=== PATIENT | male | born 1985 | race Caucasian/White ===

== ENCOUNTER 2017-04-07 23:57 | Inpatient (IN) | payer BC ==
[2017-04-08] MEDS: SOD CHLORIDE 0.9% 500 ML IV
[2017-04-08 00:24] LABS: ADD MAN DIFF? NO
[2017-04-08 00:31] LABS: WHITE BLOOD COUNT 9.7 10^3/ul (4.8-10.8)
[2017-04-08 00:31] LABS: ABNORMAL IP MESSAGE 1; BASOPHILS % 0.3 % (0.0-2.0); EOSINOPHILS # 0.1 10^3/ul (0.0-0.5); EOSINOPHILS % 0.8 % (0.0-7.0); HEMATOCRIT 42.9 % (42.0-52.0); HEMOGLOBIN 14.1 g/dl (14.0-18.0); LYMPHOCYTES # 5.2 10^3/ul (0.8-2.9); LYMPHOCYTES % 53.3 % (15.0-51.0); MEAN CORPUSCULAR HEMOGLOBIN 32.1 pg (29.0-33.0); MEAN CORPUSCULAR HGB CONC 32.9 g/dl (32.0-37.0); MEAN CORPUSCULAR VOLUME 97.7 fl (82.0-101.0); MEAN PLATELET VOLUME 10.1 fl (7.4-10.4); MONOCYTE # 0.4 10^3/ul (0.3-0.9); MONOCYTES % 3.7 % (0.0-11.0); NEUTROPHILS % 41.3 % (39.0-77.0); PLATELET COUNT 210 10^3/UL (140-415); POSITIVE DIFF @See below; RED BLOOD COUNT 4.39 10^6/ul (4.70-6.10)
[2017-04-08] MEDS: CEFTRIAXONE 1 GM/50 ML (PMX) 50 ML IVPB (01:00)
[2017-04-08 01:09] LABS: ALANINE AMINOTRANSFERASE 142 IU/L (13-69); ALBUMIN 4.5 g/dl (3.3-4.9); ALBUMIN/GLOBULIN RATIO 1.36; ALKALINE PHOSPHATASE 61 IU/L (42-121); ANION GAP 29 (8-16); ASPARTATE AMINO TRANSFERASE 207 IU/L (15-46); BILIRUBIN,INDIRECT 0.1 mg/dl (0-1.1); BILIRUBIN,TOTAL 0.1 mg/dl (0.2-1.3); BLOOD UREA NITROGEN 15 mg/dl (7-20); CALCIUM 9.3 mg/dl (8.4-10.2); CARBON DIOXIDE 19 mmol/L (21-31); CHLORIDE 101 mmol/L (97-110); CREATININE 1.49 mg/dl (0.61-1.24); GLUCOSE 180 mg/dl (70-220); POTASSIUM 3.2 mmol/L (3.5-5.1); SODIUM 146 mmol/L (135-144); TOTAL PROTEIN 7.8 g/dl (6.1-8.1)
[2017-04-08 01:20] LABS: TROPONIN-I 0.032 ng/ml (0.00-0.12)
[2017-04-08 01:21] LABS: CANNABINOIDS Positive (NEGATIVE)
[2017-04-08 01:22] LABS: AMPHETAMINE/METHAMPHETAMINE Negative (NEGATIVE); BARBITURATES Negative (NEGATIVE); BENZODIAZEPINES Negative (NEGATIVE); COCAINE Positive (NEGATIVE); OPIATES Negative (NEGATIVE)
[2017-04-08 01:24] LABS: INR 1.03; PROTIME 13.6 Sec (11.9-14.9); PT RATIO 1.1
[2017-04-08 01:25] LABS: PARTIAL THROMBOPLASTIN TIME 27.4 Sec (25.0-35.0)
[2017-04-08] MEDS: CLINDAMYCIN 900 MG/D5W (PMX) 50 ML IVPB (01:30)
[2017-04-08] MEDS: PROPOFOL 100 ML IV ×2 (01:35→22:34)
[2017-04-08 01:55] LABS: HEPATITIS B SURFACE ANTIGEN NEGATIVE (NEGATIVE)
[2017-04-08 02:12] LABS: HEPATITIS C VIRAL ANTIBODY NEGATIVE (NEGATIVE); HIV 1&2 ANTIBODY NEGATIVE (NEGATIVE)
[2017-04-08 02:13] LABS: HEPATITIS B SURFACE ANTIBODY POSITIVE (NEGATIVE)
[2017-04-08 02:14] LABS: ADD UMIC YES; UR ASCORBIC ACID NEGATIVE (NEGATIVE); UR BILIRUBIN (Dip) NEGATIVE (NEGATIVE); UR BLOOD (Dip) 1+ mg/dL (NEGATIVE); UR CLARITY CLOUDY (CLEAR); UR COLOR YELLOW (YELLOW); UR GLUCOSE (Dip) 1+ mg/dL (NEGATIVE); UR KETONES (Dip) NEGATIVE (NEGATIVE); UR LEUKOCYTE ESTERASE (Dip) NEGATIVE Leu/ul (NEGATIVE); UR MUCUS FEW /HPF (NONE SEEN); UR NITRITE (Dip) NEGATIVE (NEGATIVE); UR RBC 43 /HPF (0-5); UR SPECIFIC GRAVITY (Dip) 1.008 (1.003-1.030); UR TOTAL PROTEIN (Dip) 3+ mg/dl (NEGATIVE); UR UROBILINOGEN (Dip) NEGATIVE (NEGATIVE); UR WBC 22 /HPF (0-5)
[2017-04-08 02:39] LABS: ACETAMINOPHEN < 10.0 ug/ml (10.0-30.0); SALICYLATE < 1.0 mg/dl (5.0-30.0)
[2017-04-08] MEDS ORDERED: LORAZEPAM 2 MG INJ IV (03:30)
[2017-04-08] MEDS ORDERED: ONDANSETRON 4 MG INJ IV ×2 (03:30→06:00)
[2017-04-08] MEDS ORDERED: ALBUTEROL HFA 8 GM INHALER INH (03:30)
[2017-04-08] MEDS ORDERED: IPRATROPIUM (HFA) 12.9 GM INHALER INH (03:30)
[2017-04-08] MEDS: VECURONIUM 10 MG VIAL IV (03:53)
[2017-04-08] MEDS: DILTIAZEM 25 MG INJ IV (03:53)
[2017-04-08] MEDS: VECURONIUM 100 MG in DEXTROSE 5% 100 ML IV (04:39)
[2017-04-08 05:56] LABS: ADD MAN DIFF? NO
[2017-04-08 05:58] LABS: ABNORMAL IP MESSAGE 1; BASOPHILS % 0.4 % (0.0-2.0); HEMOGLOBIN 16.7 g/dl (14.0-18.0); LYMPHOCYTES # 0.3 10^3/ul (0.8-2.9); LYMPHOCYTES % 4.5 % (15.0-51.0); MEAN CORPUSCULAR HEMOGLOBIN 32.1 pg (29.0-33.0); MEAN CORPUSCULAR HGB CONC 33.4 g/dl (32.0-37.0); MEAN PLATELET VOLUME 9.9 fl (7.4-10.4); MONOCYTE # 0.4 10^3/ul (0.3-0.9); MONOCYTES % 4.7 % (0.0-11.0); NEUTROPHIL # 6.8 10^3/ul (1.6-7.5); NEUTROPHILS % 90.1 % (39.0-77.0); PLATELET COUNT 214 10^3/UL (140-415); POSITIVE DIFF @See below; RED BLOOD COUNT 5.21 10^6/ul (4.70-6.10); RED CELL DISTRIBUTION WIDTH 12.1 % (11.5-14.5)
[2017-04-08 05:58] LABS: WHITE BLOOD COUNT 7.5 10^3/ul (4.8-10.8)
[2017-04-08] MEDS ORDERED: ACETAMINOPHEN 325 MG TAB PO (06:00)
[2017-04-08 06:13] LABS: ALANINE AMINOTRANSFERASE 208 IU/L (13-69); ALBUMIN/GLOBULIN RATIO 1.53; ALKALINE PHOSPHATASE 56 IU/L (42-121); ANION GAP 17 (8-16); ASPARTATE AMINO TRANSFERASE 281 IU/L (15-46); BILIRUBIN,INDIRECT 0.1 mg/dl (0-1.1); BILIRUBIN,TOTAL 0.1 mg/dl (0.2-1.3); BLOOD UREA NITROGEN 17 mg/dl (7-20); CALCIUM 7.9 mg/dl (8.4-10.2); CARBON DIOXIDE 24 mmol/L (21-31); CHLORIDE 111 mmol/L (97-110); CREATININE 1.21 mg/dl (0.61-1.24); GLUCOSE 122 mg/dl (70-220); MAGNESIUM 1.7 mg/dl (1.7-2.5); POTASSIUM 3.8 mmol/L (3.5-5.1); SODIUM 148 mmol/L (135-144); TOTAL PROTEIN 6.6 g/dl (6.1-8.1)
[2017-04-08] MEDS: INSULIN HUMAN REGULAR 100 UNIT in SOD CHLORIDE 0.9% 99 ML IV ×2 (06:54→20:06)
[2017-04-08] MEDS ORDERED: NALOXONE 2 MG SYG (07:00)
[2017-04-08] MEDS ORDERED: AMIODARONE 150 MG INJ (07:00)
[2017-04-08] MEDS ORDERED: NA BICARBONATE 8.4% 50 ML SYG (07:00)
[2017-04-08] MEDS ORDERED: EPINEPHrine 0.1 MG/ML SYG (07:00)
[2017-04-08] MEDS: DEXTROSE 5%-0.45% NACL 1,000 ML IV ×3 (07:59→19:49)
[2017-04-08] MEDS: SOD CHLORIDE 0.9% 1,000 ML IV (08:00)
[2017-04-08] MEDS ORDERED: ACETAMINOPHEN 650 MG SUPP PR (08:30)
[2017-04-08] MEDS ORDERED: MEPERIDINE 25 MG INJ IV ×2 (08:30)
[2017-04-08] MEDS ORDERED: ACETAMINOPHEN 650MG/20.3ML CUP PO (08:30)
[2017-04-08] MEDS ORDERED: DEXTROSE 50% 50 ML SYRINGE IV (08:30)
[2017-04-08 08:39] LABS: AADO2 Arterial 533.9 mmHg (7.0-24.0); Allen Test ACCEPTAB; Arterial Base Excess -12.7 mmol/L (-3.0-3); Arterial Blood Gas Oxygen Sat 97.4 mmHG (95.0-98.0); Arterial COHb 0.3 % (0.0-3.0); Arterial Fraction of Oxyhgb 96.8 % (93.0-99.0); Arterial HCO3 15.3 mmol/L (22.0-26.0); Arterial MetHb 0.3 % (0.0-1.5); Arterial Total Hemglobin 14.4 g/dl (12.0-18.0); Arterial pCO2 42.6 mmhg (35-45); Blood Gas Mean Airway Pressure 12; MODE VENT - AC; Site Right Radial
[2017-04-08] MEDS: FAMOTIDINE 20 MG INJ IV ×2 (08:40→21:38)
[2017-04-08] MEDS: MULTIVITAMINS 10 ML, THIAMINE 100 MG, FOLIC ACID 1 MG in SOD CHLORIDE 0.9% 1,000 ML IVPB (08:41)
[2017-04-08 09:17] LABS: AADO2 Arterial 502.3 mmHg (7.0-24.0); Allen Test ACCEPTAB; Arterial Base Excess -7.7 mmol/L (-3.0-3); Arterial Blood Gas Oxygen Sat 98.3 mmHG (95.0-98.0); Arterial COHb 0.3 % (0.0-3.0); Arterial Fraction of Oxyhgb 97.8 % (93.0-99.0); Arterial HCO3 21.7 mmol/L (22.0-26.0); Arterial MetHb 0.2 % (0.0-1.5); Arterial Total Hemglobin 17.2 g/dl (12.0-18.0); Arterial pCO2 59.3 mmhg (35-45); MODE VENT - AC; Site Right Radial
[2017-04-08] MEDS: CEFEPIME 1GM/50 ML (PMX) 50 ML IVPB ×2 (09:35→21:39)
[2017-04-08 10:09] LABS: CREATINE KINASE 278 IU/L (23-200)
[2017-04-08] MEDS: ACCU-CHEK XX ×16 (10:09→23:34)
[2017-04-08 10:23] LABS: CK INDEX 0.7; TROPONIN-I 0.021 ng/ml (0.00-0.12)
[2017-04-08 10:26] LABS: CK-MB 2.08 ng/ml (0.0-2.4)
[2017-04-08] MEDS: VALSARTAN 80 MG TAB PO (11:30)
[2017-04-08] MEDS: SPIRONOLACTONE 25 MG TAB PO (11:30)
[2017-04-08] MEDS ORDERED: METOPROLOL (XL) 50 MG TAB PO (11:30)
[2017-04-08] MEDS: OCULAR LUBRICANT 3.5 GM OPH OINT BOTH EYES ×3 (12:00→23:36)
[2017-04-08 12:19] LABS: ALANINE AMINOTRANSFERASE 185 IU/L (13-69); ALBUMIN 3.4 g/dl (3.3-4.9); ALBUMIN/GLOBULIN RATIO 1.21; ALKALINE PHOSPHATASE 44 IU/L (42-121); ANION GAP 18 (8-16); ASPARTATE AMINO TRANSFERASE 212 IU/L (15-46); BILIRUBIN,INDIRECT 0.3 mg/dl (0-1.1); BILIRUBIN,TOTAL 0.3 mg/dl (0.2-1.3); BLOOD UREA NITROGEN 16 mg/dl (7-20); CALCIUM 8.1 mg/dl (8.4-10.2); CARBON DIOXIDE 22 mmol/L (21-31); CHLORIDE 110 mmol/L (97-110); GLUCOSE 136 mg/dl (70-220); MAGNESIUM 1.4 mg/dl (1.7-2.5); PHOSPHORUS 3.4 mg/dl (2.5-4.9); POTASSIUM 3.7 mmol/L (3.5-5.1); SODIUM 146 mmol/L (135-144); TOTAL PROTEIN 6.2 g/dl (6.1-8.1)
[2017-04-08] MEDS: ARTIFICIAL TEARS 15 ML OPH BOTH EYES ×3 (12:48→23:35)
[2017-04-08 13:22] LABS: AADO2 Arterial 381.1 mmHg (7.0-24.0); Allen Test ACCEPTAB; Arterial Base Excess -7.1 mmol/L (-3.0-3); Arterial Blood Gas Oxygen Sat 99.3 mmHG (95.0-98.0); Arterial COHb 0.3 % (0.0-3.0); Arterial Fraction of Oxyhgb 98.7 % (93.0-99.0); Arterial HCO3 21.1 mmol/L (22.0-26.0); Arterial MetHb 0.3 % (0.0-1.5); Arterial Total Hemglobin 17.3 g/dl (12.0-18.0); Arterial pCO2 43.6 mmhg (35-45); MODE VENT - AC; Site Right Radial; Temperature 33.1 C
[2017-04-08 19:32] LABS: ALANINE AMINOTRANSFERASE 182 IU/L (13-69); ALBUMIN/GLOBULIN RATIO 1.48; ALKALINE PHOSPHATASE 37 IU/L (42-121); ANION GAP 18 (8-16); ASPARTATE AMINO TRANSFERASE 188 IU/L (15-46); BILIRUBIN,INDIRECT 0.4 mg/dl (0-1.1); BILIRUBIN,TOTAL 0.4 mg/dl (0.2-1.3); BLOOD UREA NITROGEN 14 mg/dl (7-20); CALCIUM 8.5 mg/dl (8.4-10.2); CARBON DIOXIDE 24 mmol/L (21-31); CHLORIDE 105 mmol/L (97-110); CREATININE 0.96 mg/dl (0.61-1.24); GLUCOSE 162 mg/dl (70-220); MAGNESIUM 1.5 mg/dl (1.7-2.5); PHOSPHORUS 4.3 mg/dl (2.5-4.9); POTASSIUM 4.6 mmol/L (3.5-5.1); SODIUM 142 mmol/L (135-144); TOTAL PROTEIN 6.7 g/dl (6.1-8.1)
[2017-04-08] MEDS: MAGNESIUM SULFATE 2 GM/50 ML 50 ML IVPB (19:44)
[2017-04-08 20:24] LABS: AADO2 Arterial 443.2 mmHg (7.0-24.0); Allen Test ACCEPTAB; Arterial Base Excess -8.1 mmol/L (-3.0-3); Arterial Blood Gas Oxygen Sat 99.3 mmHG (95.0-98.0); Arterial COHb 0.3 % (0.0-3.0); Arterial Fraction of Oxyhgb 98.7 % (93.0-99.0); Arterial HCO3 20.5 mmol/L (22.0-26.0); Arterial MetHb 0.3 % (0.0-1.5); MODE VENT - AC; Site Left Radial; Temperature 33.2 C
[2017-04-09] MEDS: ACCU-CHEK XX ×21 (00:57→20:45)
[2017-04-09 01:21] LABS: ALANINE AMINOTRANSFERASE 167 IU/L (13-69); ALBUMIN 3.6 g/dl (3.3-4.9); ALBUMIN/GLOBULIN RATIO 1.24; ALKALINE PHOSPHATASE 36 IU/L (42-121); ANION GAP 13 (8-16); ASPARTATE AMINO TRANSFERASE 142 IU/L (15-46); BILIRUBIN,INDIRECT 0.3 mg/dl (0-1.1); BILIRUBIN,TOTAL 0.3 mg/dl (0.2-1.3); BLOOD UREA NITROGEN 12 mg/dl (7-20); CALCIUM 8.6 mg/dl (8.4-10.2); CARBON DIOXIDE 29 mmol/L (21-31); CHLORIDE 104 mmol/L (97-110); CREATININE 0.76 mg/dl (0.61-1.24); GLUCOSE 138 mg/dl (70-220); MAGNESIUM 1.9 mg/dl (1.7-2.5); PHOSPHORUS 4.6 mg/dl (2.5-4.9); POTASSIUM 5.2 mmol/L (3.5-5.1); SODIUM 141 mmol/L (135-144); TOTAL PROTEIN 6.5 g/dl (6.1-8.1)
[2017-04-09] MEDS: DEXTROSE 5%-0.45% NACL 1,000 ML IV ×3 (01:54→17:53)
[2017-04-09 02:20] LABS: AADO2 Arterial 263.1 mmHg (7.0-24.0); Allen Test ACCEPTAB; Arterial Base Excess -4.4 mmol/L (-3.0-3); Arterial Blood Gas Oxygen Sat 98.5 mmHG (95.0-98.0); Arterial COHb 0.1 % (0.0-3.0); Arterial Fraction of Oxyhgb 98.1 % (93.0-99.0); Arterial HCO3 24.4 mmol/L (22.0-26.0); Arterial MetHb 0.3 % (0.0-1.5); Arterial pCO2 49.4 mmhg (35-45); MODE VENT - AC; Site Right Radial; Temperature 32.8 C
[2017-04-09] MEDS: ARTIFICIAL TEARS 15 ML OPH BOTH EYES ×3 (05:14→17:09)
[2017-04-09] MEDS: OCULAR LUBRICANT 3.5 GM OPH OINT BOTH EYES ×3 (05:14→17:10)
[2017-04-09] MEDS: VECURONIUM 100 MG in DEXTROSE 5% 100 ML IV (05:16)
[2017-04-09 05:57] LABS: AADO2 Arterial 255.1 mmHg (7.0-24.0); Allen Test ACCEPTAB; Arterial Base Excess -2.9 mmol/L (-3.0-3); Arterial Blood Gas Oxygen Sat 98.7 mmHG (95.0-98.0); Arterial COHb 0.5 % (0.0-3.0); Arterial Fraction of Oxyhgb 97.9 % (93.0-99.0); Arterial HCO3 23.4 mmol/L (22.0-26.0); Arterial MetHb 0.3 % (0.0-1.5); Arterial Total Hemglobin 16.1 g/dl (12.0-18.0); MODE VENT - AC; Site Right Radial; Temperature 33.8 C
[2017-04-09 06:03] LABS: HEMATOCRIT 47.5 % (42.0-52.0); HEMOGLOBIN 15.9 g/dl (14.0-18.0); MEAN CORPUSCULAR HEMOGLOBIN 31.9 pg (29.0-33.0); MEAN CORPUSCULAR HGB CONC 33.5 g/dl (32.0-37.0); MEAN CORPUSCULAR VOLUME 95.4 fl (82.0-101.0); MEAN PLATELET VOLUME 10.8 fl (7.4-10.4); PLATELET COUNT 152 10^3/UL (140-415); POSITIVE DIFF @See below; RED BLOOD COUNT 4.98 10^6/ul (4.70-6.10); RED CELL DISTRIBUTION WIDTH 12.5 % (11.5-14.5)
[2017-04-09 06:03] LABS: WHITE BLOOD COUNT 16.7 10^3/ul (4.8-10.8)
[2017-04-09 07:06] LABS: ALANINE AMINOTRANSFERASE 146 IU/L (13-69); ALBUMIN 3.6 g/dl (3.3-4.9); ALBUMIN/GLOBULIN RATIO 1.33; ALKALINE PHOSPHATASE 54 IU/L (42-121); ANION GAP 15 (8-16); ASPARTATE AMINO TRANSFERASE 133 IU/L (15-46); BILIRUBIN,INDIRECT 0.3 mg/dl (0-1.1); BILIRUBIN,TOTAL 0.3 mg/dl (0.2-1.3); BLOOD UREA NITROGEN 11 mg/dl (7-20); CALCIUM 8.6 mg/dl (8.4-10.2); CARBON DIOXIDE 27 mmol/L (21-31); CHLORIDE 104 mmol/L (97-110); CREATININE 0.77 mg/dl (0.61-1.24); GLUCOSE 123 mg/dl (70-220); MAGNESIUM 1.9 mg/dl (1.7-2.5); PHOSPHORUS 4.1 mg/dl (2.5-4.9); POTASSIUM 5.4 mmol/L (3.5-5.1); SODIUM 141 mmol/L (135-144); TOTAL PROTEIN 6.3 g/dl (6.1-8.1)
[2017-04-09 07:08] LABS: ADD MAN DIFF? YES
[2017-04-09] MEDS: ACETAMINOPHEN 650MG/20.3ML CUP PO ×4 (08:30→20:30)
[2017-04-09] MEDS: PROPOFOL 100 ML IV ×3 (08:33→21:21)
[2017-04-09] MEDS: ACETAMINOPHEN 650 MG SUPP PR ×3 (08:47→20:23)
[2017-04-09] MEDS: CEFEPIME 1GM/50 ML (PMX) 50 ML IVPB (08:55)
[2017-04-09] MEDS: SPIRONOLACTONE 25 MG TAB PO (09:00)
[2017-04-09] MEDS: VALSARTAN 80 MG TAB PO (09:00)
[2017-04-09] MEDS: FAMOTIDINE 20 MG INJ IV (09:10)
[2017-04-09] MEDS: MULTIVITAMINS 10 ML, THIAMINE 100 MG, FOLIC ACID 1 MG in SOD CHLORIDE 0.9% 1,000 ML IVPB (09:16)
[2017-04-09 09:43] LABS: AADO2 Arterial 147.4 mmHg (7.0-24.0); Allen Test ACCEPTAB; Arterial Base Excess 0.5 mmol/L (-3.0-3); Arterial Blood Gas Oxygen Sat 96.5 mmHG (95.0-98.0); Arterial COHb 0.1 % (0.0-3.0); Arterial Fraction of Oxyhgb 96.3 % (93.0-99.0); Arterial HCO3 26.4 mmol/L (22.0-26.0); Arterial MetHb 0.1 % (0.0-1.5); Arterial Total Hemglobin 15.9 g/dl (12.0-18.0); Arterial pCO2 46.7 mmhg (35-45); MODE VENT - AC; Site Right Radial
[2017-04-09 10:51] LABS: SEGMENTED NEUTROPHILS (M) % 35 % (39-77)
[2017-04-09 10:52] LABS: BAND NEUTROPHILS #M 9.1 10^3/ul (0.0-0.6); BAND NEUTROPHILS % (M) 55 % (0-4); GIANT THROMBO% (M) 1 % (0-0); LYMPHOCYTES #M 0.5 10^3/ul (0.8-2.9); LYMPHOCYTES % (M) 3 % (15-51); METAMYELOCYTES #M 0.1 10^3/ul (0.0-0.0); METAMYELOCYTES %M 1 % (0-0); MONOCYTE #M 0.6 10^3/ul (0.3-0.9); MONOCYTES % (M) 4 % (0-11); PLATELET ESTIMATE NORMAL; POIKILOCYTOSIS 1+ (0-0); REACTIVE LYMPHOCYTES #M 0.3 10^3/ul (0.0-0.0); REACTIVE LYMPHOCYTES% (M) 2 % (0-0); SEG NEUT #M 7.4 10^3/ul (1.6-7.5); SMUDGE%M 9 % (0-0)
[2017-04-09 12:23] LABS: ALANINE AMINOTRANSFERASE 133 IU/L (13-69); ALBUMIN 3.4 g/dl (3.3-4.9); ALBUMIN/GLOBULIN RATIO 1.25; ALKALINE PHOSPHATASE 43 IU/L (42-121); ANION GAP 12 (8-16); ASPARTATE AMINO TRANSFERASE 94 IU/L (15-46); BILIRUBIN,INDIRECT 0.3 mg/dl (0-1.1); BILIRUBIN,TOTAL 0.3 mg/dl (0.2-1.3); BLOOD UREA NITROGEN 10 mg/dl (7-20); CALCIUM 8.7 mg/dl (8.4-10.2); CARBON DIOXIDE 26 mmol/L (21-31); CHLORIDE 106 mmol/L (97-110); CREATININE 0.58 mg/dl (0.61-1.24); GLUCOSE 93 mg/dl (70-220); MAGNESIUM 1.6 mg/dl (1.7-2.5); PHOSPHORUS 3.2 mg/dl (2.5-4.9); POTASSIUM 5.1 mmol/L (3.5-5.1); SODIUM 139 mmol/L (135-144); TOTAL PROTEIN 6.1 g/dl (6.1-8.1)
[2017-04-09] MEDS: DEXTROSE 50% 50 ML SYRINGE IV ×2 (13:37→15:43)
[2017-04-09] MEDS: morphine 2 MG INJ IV (16:59)
[2017-04-09] MEDS: AMPICILLIN/SULB 3 GM/NS (PMX) 100 ML IVPB (17:27)
[2017-04-09 20:00] LABS: ALANINE AMINOTRANSFERASE 115 IU/L (13-69); ALBUMIN 3.2 g/dl (3.3-4.9); ALBUMIN/GLOBULIN RATIO 1.06; ALKALINE PHOSPHATASE 35 IU/L (42-121); ANION GAP 12 (8-16); ASPARTATE AMINO TRANSFERASE 89 IU/L (15-46); BILIRUBIN,INDIRECT 0.3 mg/dl (0-1.1); BILIRUBIN,TOTAL 0.3 mg/dl (0.2-1.3); BLOOD UREA NITROGEN 10 mg/dl (7-20); CARBON DIOXIDE 29 mmol/L (21-31); CHLORIDE 105 mmol/L (97-110); CREATININE 0.74 mg/dl (0.61-1.24); GLUCOSE 88 mg/dl (70-220); MAGNESIUM 1.6 mg/dl (1.7-2.5); PHOSPHORUS 2.6 mg/dl (2.5-4.9); POTASSIUM 4.7 mmol/L (3.5-5.1); SODIUM 141 mmol/L (135-144); TOTAL PROTEIN 6.2 g/dl (6.1-8.1)
[2017-04-09] MEDS: FAMOTIDINE 20 MG TAB NGT (20:41)
[2017-04-09] MEDS: FENTAnyl (DRIP) 1000 mcg/100mL 100 ML IV (22:21)
[2017-04-10] MEDS: AMPICILLIN/SULB 3 GM/NS (PMX) 100 ML IVPB ×5 (00:21→23:32)
[2017-04-10] MEDS: ARTIFICIAL TEARS 15 ML OPH BOTH EYES ×2 (00:21→05:34)
[2017-04-10] MEDS: OCULAR LUBRICANT 3.5 GM OPH OINT BOTH EYES ×2 (00:22→05:34)
[2017-04-10 01:00] LABS: ALANINE AMINOTRANSFERASE 106 IU/L (13-69); ALBUMIN/GLOBULIN RATIO 1.03; ALKALINE PHOSPHATASE 42 IU/L (42-121); ANION GAP 8 (8-16); ASPARTATE AMINO TRANSFERASE 72 IU/L (15-46); BILIRUBIN,INDIRECT 0.2 mg/dl (0-1.1); BILIRUBIN,TOTAL 0.2 mg/dl (0.2-1.3); BLOOD UREA NITROGEN 11 mg/dl (7-20); CALCIUM 8.9 mg/dl (8.4-10.2); CARBON DIOXIDE 30 mmol/L (21-31); CHLORIDE 106 mmol/L (97-110); CREATININE 0.91 mg/dl (0.61-1.24); GLUCOSE 107 mg/dl (70-220); MAGNESIUM 1.5 mg/dl (1.7-2.5); PHOSPHORUS 2.3 mg/dl (2.5-4.9); POTASSIUM 4.4 mmol/L (3.5-5.1); SODIUM 140 mmol/L (135-144); TOTAL PROTEIN 5.9 g/dl (6.1-8.1)
[2017-04-10] MEDS: FAMOTIDINE 20 MG TAB NGT ×2 (01:14→08:42)
[2017-04-10] MEDS: ACCU-CHEK XX ×4 (01:25→08:55)
[2017-04-10] MEDS: DEXTROSE 50% 50 ML SYRINGE IV (01:29)
[2017-04-10] MEDS: PROPOFOL 100 ML IV (01:44)
[2017-04-10] MEDS: ACETAMINOPHEN 650 MG SUPP PR (02:30)
[2017-04-10] MEDS: ACETAMINOPHEN 650MG/20.3ML CUP PO ×3 (02:44→21:17)
[2017-04-10] MEDS: DEXTROSE 5%-0.45% NACL 1,000 ML IV ×2 (02:45→10:40)
[2017-04-10 05:50] LABS: WHITE BLOOD COUNT 18.1 10^3/ul (4.8-10.8)
[2017-04-10 05:50] LABS: HEMATOCRIT 37.1 % (42.0-52.0); HEMOGLOBIN 12.5 g/dl (14.0-18.0); MEAN CORPUSCULAR HEMOGLOBIN 32.5 pg (29.0-33.0); MEAN CORPUSCULAR HGB CONC 33.7 g/dl (32.0-37.0); MEAN CORPUSCULAR VOLUME 96.4 fl (82.0-101.0); MEAN PLATELET VOLUME 11.4 fl (7.4-10.4); PLATELET COUNT 126 10^3/UL (140-415); POSITIVE DIFF @See below; RED BLOOD COUNT 3.85 10^6/ul (4.70-6.10); RED CELL DISTRIBUTION WIDTH 12.8 % (11.5-14.5)
[2017-04-10 05:52] LABS: ADD MAN DIFF? YES
[2017-04-10 06:24] LABS: ALANINE AMINOTRANSFERASE 94 IU/L (13-69); ALBUMIN 2.8 g/dl (3.3-4.9); ALBUMIN/GLOBULIN RATIO 1.03; ALKALINE PHOSPHATASE 43 IU/L (42-121); ANION GAP 9 (8-16); ASPARTATE AMINO TRANSFERASE 65 IU/L (15-46); BILIRUBIN,INDIRECT 0.1 mg/dl (0-1.1); BILIRUBIN,TOTAL 0.1 mg/dl (0.2-1.3); BLOOD UREA NITROGEN 11 mg/dl (7-20); CALCIUM 8.7 mg/dl (8.4-10.2); CARBON DIOXIDE 30 mmol/L (21-31); CHLORIDE 106 mmol/L (97-110); CREATININE 0.92 mg/dl (0.61-1.24); GLUCOSE 96 mg/dl (70-220); MAGNESIUM 1.5 mg/dl (1.7-2.5); PHOSPHORUS 2.9 mg/dl (2.5-4.9); POTASSIUM 4.2 mmol/L (3.5-5.1); SODIUM 141 mmol/L (135-144); TOTAL PROTEIN 5.5 g/dl (6.1-8.1)
[2017-04-10 07:37] LABS: BAND NEUTROPHILS #M 3.6 10^3/ul (0.0-0.6); BAND NEUTROPHILS % (M) 20 % (0-4); EOSINOPHILS % (M) 3 % (0-7); GIANT THROMBO% (M) 9 % (0-0); LYMPHOCYTES #M 5.6 10^3/ul (0.8-2.9); LYMPHOCYTES % (M) 31 % (15-51); MONOCYTE #M 0.3 10^3/ul (0.3-0.9); MONOCYTES % (M) 2 % (0-11); PLATELET ESTIMATE DECREASED; POIKILOCYTOSIS 1+ (0-0); SEG NEUT #M 8.6 10^3/ul (1.6-7.5); SEGMENTED NEUTROPHILS (M) % 44 % (39-77); SMUDGE%M 47 % (0-0)
[2017-04-10] MEDS: VALSARTAN 80 MG TAB PO ×2 (08:42→21:17)
[2017-04-10] MEDS: SPIRONOLACTONE 25 MG TAB PO (08:42)
[2017-04-10 11:45] LABS: AADO2 Arterial 76.3 mmHg (7.0-24.0); Allen Test ACCEPTAB; Arterial Base Excess 5.2 mmol/L (-3.0-3); Arterial Blood Gas Oxygen Sat 96.8 mmHG (95.0-98.0); Arterial COHb 0.4 % (0.0-3.0); Arterial Fraction of Oxyhgb 96.2 % (93.0-99.0); Arterial HCO3 29.9 mmol/L (22.0-26.0); Arterial MetHb 0.2 % (0.0-1.5); Arterial Total Hemglobin 13.8 g/dl (12.0-18.0); Arterial pCO2 43.9 mmhg (35-45); Blood Gas PS 10; MODE VENT - CPAP; Site Left Radial
[2017-04-10] MEDS ORDERED: GLUCAGON 1 MG INJ IM (13:00)
[2017-04-10] MEDS ORDERED: GLUCOSE GEL 15 GRAM TUBE PO ×2 (13:00)
[2017-04-10] MEDS ORDERED: DEXTROSE 50% 50 ML SYRINGE IV ×2 (13:00)
[2017-04-10] MEDS ORDERED: GLUCOSE GEL 15 GRAM TUBE BUCCAL (13:00)
[2017-04-10 14:04] LABS: HEPATITIS B CORE ANTIBODY NEGATIVE (NEGATIVE)
[2017-04-10] MEDS: MULTIVITAMINS 10 ML, THIAMINE 100 MG, FOLIC ACID 1 MG in SOD CHLORIDE 0.9% 1,000 ML IVPB (15:01)
[2017-04-10] MEDS: INSULIN ASPART [NOVOLOG] 3 ML PEN SC ×2 (17:35→21:00)
[2017-04-10] MEDS: MAGNESIUM SULFATE 2 GM/50 ML 50 ML IVPB (18:10)
[2017-04-11 00:08] LABS: MAGNESIUM 1.9 mg/dl (1.7-2.5)
[2017-04-11] MEDS: MAGNESIUM SULFATE 1 GM/D5W 100 ML IVPB (01:05)
[2017-04-11 01:12] LABS: POTASSIUM 3.5 mmol/L (3.5-5.1)
[2017-04-11] MEDS: DEXTROSE 5%-0.45% NACL 1,000 ML IV ×3 (01:33→11:40)
[2017-04-11] MEDS: ACCU-CHEK XX (02:00)
[2017-04-11] MEDS: POTASSIUM CHLORIDE (SR) 20 MEQ TAB PO (03:17)
[2017-04-11 05:55] LABS: ADD MAN DIFF? NO
[2017-04-11 06:00] LABS: BASOPHILS % 0.2 % (0.0-2.0); EOSINOPHILS # 0.1 10^3/ul (0.0-0.5); EOSINOPHILS % 0.4 % (0.0-7.0); HEMATOCRIT 34.6 % (42.0-52.0); HEMOGLOBIN 11.6 g/dl (14.0-18.0); LYMPHOCYTES % 12.4 % (15.0-51.0); MEAN CORPUSCULAR HGB CONC 33.5 g/dl (32.0-37.0); MEAN CORPUSCULAR VOLUME 95.3 fl (82.0-101.0); MEAN PLATELET VOLUME 11.1 fl (7.4-10.4); MONOCYTE # 0.4 10^3/ul (0.3-0.9); MONOCYTES % 2.5 % (0.0-11.0); NEUTROPHIL # 13.1 10^3/ul (1.6-7.5); NEUTROPHILS % 82.7 % (39.0-77.0); PLATELET COUNT 105 10^3/UL (140-415); POSITIVE DIFF @See below; RED BLOOD COUNT 3.63 10^6/ul (4.70-6.10); RED CELL DISTRIBUTION WIDTH 12.6 % (11.5-14.5)
[2017-04-11 06:00] LABS: WHITE BLOOD COUNT 15.8 10^3/ul (4.8-10.8)
[2017-04-11] MEDS: AMPICILLIN/SULB 3 GM/NS (PMX) 100 ML IVPB ×2 (06:36→13:02)
[2017-04-11] MEDS: PANTOPRAZOLE (EC) 40 MG TAB PO (06:37)
[2017-04-11 06:41] LABS: ALANINE AMINOTRANSFERASE 70 IU/L (13-69); ALBUMIN 2.8 g/dl (3.3-4.9); ALBUMIN/GLOBULIN RATIO 0.96; ALKALINE PHOSPHATASE 40 IU/L (42-121); ASPARTATE AMINO TRANSFERASE 47 IU/L (15-46); BILIRUBIN,INDIRECT 0.6 mg/dl (0-1.1); BILIRUBIN,TOTAL 0.6 mg/dl (0.2-1.3); BLOOD UREA NITROGEN 12 mg/dl (7-20); CALCIUM 8.7 mg/dl (8.4-10.2); CARBON DIOXIDE 28 mmol/L (21-31); CHLORIDE 109 mmol/L (97-110); GLUCOSE 90 mg/dl (70-220); MAGNESIUM 2.1 mg/dl (1.7-2.5); PHOSPHORUS 1.3 mg/dl (2.5-4.9); SODIUM 142 mmol/L (135-144); TOTAL PROTEIN 5.7 g/dl (6.1-8.1)
[2017-04-11] MEDS: INSULIN ASPART [NOVOLOG] 3 ML PEN SC ×5 (07:35→21:00)
[2017-04-11 07:41] LABS: ANION GAP 9 (8-16)
[2017-04-11 07:43] LABS: POTASSIUM 4.4 mmol/L (3.5-5.1)
[2017-04-11] MEDS: SPIRONOLACTONE 25 MG TAB PO (10:47)
[2017-04-11] MEDS: VALSARTAN 80 MG TAB PO ×2 (10:47→21:30)
[2017-04-11] MEDS: FUROSEMIDE 40 MG INJ IV (12:59)
[2017-04-11] MEDS: POTASSIUM PHOSPHATE 40 MEQ in SOD CHLORIDE 0.9% 250 ML IVPB (13:03)
[2017-04-11] MEDS ORDERED: POTASSIUM PHOSPHATE 40 MEQ in SOD CHLORIDE 0.9% 250 ML IVPB (15:00)
[2017-04-11] MEDS: AMOXICILLIN/CLAV 875 MG TAB PO (21:29)
[2017-04-12] MEDS: ACCU-CHEK XX (02:00)
[2017-04-12 07:20] LABS: ADD MAN DIFF? NO
[2017-04-12 07:31] LABS: BASOPHILS % 0.2 % (0.0-2.0); EOSINOPHILS # 0.1 10^3/ul (0.0-0.5); HEMATOCRIT 34.6 % (42.0-52.0); HEMOGLOBIN 11.9 g/dl (14.0-18.0); LYMPHOCYTES # 1.6 10^3/ul (0.8-2.9); MEAN CORPUSCULAR HEMOGLOBIN 31.6 pg (29.0-33.0); MEAN CORPUSCULAR HGB CONC 34.4 g/dl (32.0-37.0); MEAN CORPUSCULAR VOLUME 91.8 fl (82.0-101.0); MEAN PLATELET VOLUME 10.8 fl (7.4-10.4); MONOCYTE # 0.8 10^3/ul (0.3-0.9); MONOCYTES % 6.3 % (0.0-11.0); NEUTROPHIL # 9.5 10^3/ul (1.6-7.5); POSITIVE DIFF @See below; RED BLOOD COUNT 3.77 10^6/ul (4.70-6.10); RED CELL DISTRIBUTION WIDTH 11.9 % (11.5-14.5)
[2017-04-12 07:33] LABS: PLATELET COUNT 127 10^3/UL (140-415)
[2017-04-12 07:47] LABS: ALANINE AMINOTRANSFERASE 57 IU/L (13-69); ALBUMIN 3.1 g/dl (3.3-4.9); ALKALINE PHOSPHATASE 51 IU/L (42-121); ASPARTATE AMINO TRANSFERASE 37 IU/L (15-46); BILIRUBIN,INDIRECT 0.8 mg/dl (0-1.1); BILIRUBIN,TOTAL 0.8 mg/dl (0.2-1.3); TOTAL PROTEIN 5.9 g/dl (6.1-8.1)
[2017-04-12 07:53] LABS: ANION GAP 13 (8-16); BLOOD UREA NITROGEN 14 mg/dl (7-20); CALCIUM 8.7 mg/dl (8.4-10.2); CARBON DIOXIDE 26 mmol/L (21-31); CHLORIDE 105 mmol/L (97-110); CREATININE 0.73 mg/dl (0.61-1.24); GLUCOSE 89 mg/dl (70-220); MAGNESIUM 1.6 mg/dl (1.7-2.5); PHOSPHORUS 3.1 mg/dl (2.5-4.9); POTASSIUM 3.6 mmol/L (3.5-5.1); SODIUM 140 mmol/L (135-144)
[2017-04-12] MEDS: INSULIN ASPART [NOVOLOG] 3 ML PEN SC ×2 (07:55→11:50)
[2017-04-12] MEDS: MULTIVITAMINS THERAPEUTIC TAB PO (08:40)
[2017-04-12] MEDS: FOLIC ACID 1 MG TAB PO (08:40)
[2017-04-12] MEDS: SPIRONOLACTONE 25 MG TAB PO (08:40)
[2017-04-12] MEDS: AMOXICILLIN/CLAV 875 MG TAB PO ×2 (08:40→22:41)
[2017-04-12] MEDS: THIAMINE 100 MG TAB PO (08:41)
[2017-04-12] MEDS: VALSARTAN 80 MG TAB PO ×2 (08:41→20:26)
[2017-04-12] MEDS: FUROSEMIDE 40 MG INJ IV (08:41)
[2017-04-12] MEDS: MAGNESIUM CHLORIDE (SR) 64 MG TAB PO ×2 (10:47→20:25)
[2017-04-12] MEDS: MAGNESIUM SULFATE 2 GM/50 ML 50 ML IVPB (10:47)
[2017-04-12] MEDS: GUAIFENESIN LA 600 MG TABSR PO (20:37)
[2017-04-13 08:23] LABS: ADD MAN DIFF? NO
[2017-04-13 08:26] LABS: BASOPHILS % 0.4 % (0.0-2.0); EOSINOPHILS # 0.2 10^3/ul (0.0-0.5); EOSINOPHILS % 1.9 % (0.0-7.0); HEMATOCRIT 35.8 % (42.0-52.0); HEMOGLOBIN 12.4 g/dl (14.0-18.0); LYMPHOCYTES % 19.1 % (15.0-51.0); MEAN CORPUSCULAR HEMOGLOBIN 31.7 pg (29.0-33.0); MEAN CORPUSCULAR HGB CONC 34.6 g/dl (32.0-37.0); MEAN CORPUSCULAR VOLUME 91.6 fl (82.0-101.0); MEAN PLATELET VOLUME 11.2 fl (7.4-10.4); MONOCYTE # 1.3 10^3/ul (0.3-0.9); MONOCYTES % 12.4 % (0.0-11.0); NEUTROPHIL # 6.6 10^3/ul (1.6-7.5); NEUTROPHILS % 65.1 % (39.0-77.0); PLATELET COUNT 143 10^3/UL (140-415); RED BLOOD COUNT 3.91 10^6/ul (4.70-6.10); RED CELL DISTRIBUTION WIDTH 11.9 % (11.5-14.5)
[2017-04-13 08:26] LABS: WHITE BLOOD COUNT 10.2 10^3/ul (4.8-10.8)
[2017-04-13] MEDS: SPIRONOLACTONE 25 MG TAB PO (08:31)
[2017-04-13] MEDS: THIAMINE 100 MG TAB PO (08:31)
[2017-04-13] MEDS: MULTIVITAMINS THERAPEUTIC TAB PO (08:31)
[2017-04-13] MEDS: FOLIC ACID 1 MG TAB PO (08:31)
[2017-04-13] MEDS: AMOXICILLIN/CLAV 875 MG TAB PO ×2 (08:31→20:34)
[2017-04-13] MEDS: MAGNESIUM CHLORIDE (SR) 64 MG TAB PO ×2 (08:32→21:46)
[2017-04-13] MEDS: VALSARTAN 80 MG TAB PO ×2 (08:33→20:34)
[2017-04-13 08:56] LABS: ANION GAP 11 (8-16); BLOOD UREA NITROGEN 14 mg/dl (7-20); CARBON DIOXIDE 28 mmol/L (21-31); CHLORIDE 103 mmol/L (97-110); CREATININE 0.73 mg/dl (0.61-1.24); GLUCOSE 94 mg/dl (70-220); MAGNESIUM 1.8 mg/dl (1.7-2.5); PHOSPHORUS 4.4 mg/dl (2.5-4.9); POTASSIUM 3.8 mmol/L (3.5-5.1); SODIUM 138 mmol/L (135-144)
[2017-04-13 11:16] LABS: ADD UMIC YES; UR ASCORBIC ACID NEGATIVE (NEGATIVE); UR BILIRUBIN (Dip) NEGATIVE (NEGATIVE); UR BLOOD (Dip) 1+ mg/dL (NEGATIVE); UR CLARITY CLEAR (CLEAR); UR COLOR YELLOW (YELLOW); UR GLUCOSE (Dip) NEGATIVE (NEGATIVE); UR KETONES (Dip) NEGATIVE (NEGATIVE); UR LEUKOCYTE ESTERASE (Dip) NEGATIVE Leu/ul (NEGATIVE); UR NITRITE (Dip) NEGATIVE (NEGATIVE); UR RBC 0 /HPF (0-5); UR SPECIFIC GRAVITY (Dip) 1.006 (1.003-1.030); UR TOTAL PROTEIN (Dip) NEGATIVE (NEGATIVE); UR UROBILINOGEN (Dip) NEGATIVE (NEGATIVE); UR WBC 2 /HPF (0-5)
[2017-04-13] MEDS ORDERED: METHYLPREDNISOLONE 40 MG INJ IV (14:00)
[2017-04-13] MEDS: ALBUTEROL/IPRATROPIUM (NEB) 3 ML AMP HHN ×2 (14:33→19:52)
[2017-04-13] MEDS: METHYLPREDNISOLONE 40 MG INJ IV ×2 (14:51→21:57)
[2017-04-13] MEDS: LEVOFLOXACIN 500MG/D5W (PMX) 100 ML IVPB (14:51)
[2017-04-14] MEDS: ALBUTEROL/IPRATROPIUM (NEB) 3 ML AMP HHN ×3 (02:00→14:44)
[2017-04-14] MEDS: METHYLPREDNISOLONE 40 MG INJ IV ×2 (06:10→14:28)
[2017-04-14 07:22] LABS: ADD MAN DIFF? NO
[2017-04-14 07:26] LABS: WHITE BLOOD COUNT 6.6 10^3/ul (4.8-10.8)
[2017-04-14 07:26] LABS: BASOPHILS % 0.3 % (0.0-2.0); HEMOGLOBIN 13.2 g/dl (14.0-18.0); LYMPHOCYTES # 1.3 10^3/ul (0.8-2.9); MEAN CORPUSCULAR HEMOGLOBIN 31.9 pg (29.0-33.0); MEAN CORPUSCULAR HGB CONC 34.7 g/dl (32.0-37.0); MEAN CORPUSCULAR VOLUME 91.8 fl (82.0-101.0); MEAN PLATELET VOLUME 10.9 fl (7.4-10.4); MONOCYTE # 0.7 10^3/ul (0.3-0.9); NEUTROPHIL # 4.5 10^3/ul (1.6-7.5); NEUTROPHILS % 68.5 % (39.0-77.0); PLATELET COUNT 187 10^3/UL (140-415); RED BLOOD COUNT 4.14 10^6/ul (4.70-6.10); RED CELL DISTRIBUTION WIDTH 11.8 % (11.5-14.5)
[2017-04-14 07:45] LABS: ANION GAP 13 (8-16); BLOOD UREA NITROGEN 20 mg/dl (7-20); CALCIUM 9.3 mg/dl (8.4-10.2); CARBON DIOXIDE 27 mmol/L (21-31); CHLORIDE 102 mmol/L (97-110); CREATININE 0.77 mg/dl (0.61-1.24); GLUCOSE 121 mg/dl (70-220); POTASSIUM 4.7 mmol/L (3.5-5.1); SODIUM 137 mmol/L (135-144)
[2017-04-14] MEDS: FOLIC ACID 1 MG TAB PO (08:42)
[2017-04-14] MEDS: SPIRONOLACTONE 25 MG TAB PO (08:43)
[2017-04-14] MEDS: VALSARTAN 80 MG TAB PO (08:45)
[2017-04-14] MEDS: MAGNESIUM CHLORIDE (SR) 64 MG TAB PO (08:45)
[2017-04-14] MEDS: MULTIVITAMINS THERAPEUTIC TAB PO (08:46)
[2017-04-14] MEDS: THIAMINE 100 MG TAB PO (08:46)
[2017-04-14] MEDS: AMOXICILLIN/CLAV 875 MG TAB PO (08:46)
[2017-04-14] MEDS: LEVOFLOXACIN 500MG/D5W (PMX) 100 ML IVPB (13:12)
[2017-04-14] MEDS: GUAIFENESIN/DM 5ML CUP PO (13:16)
== END 2017-04-14 15:27 | disposition home or self-care (01) | DRG 296 ==
LOC: TEL 04-11 14:25 → E/R 23:57 → TEL 04-11 19:42 → ICU 04-08 05:59
PROC: 5A12012 Performance of Cardiac Output, Single, Manual (ICD-10-PCS; 2017-04-07)
PROC: 5A1945Z Respiratory Ventilation, 24-96 Consecutive Hours (ICD-10-PCS; principal; 2017-04-08)
PROC: 0BH17EZ Insertion of Endotracheal Airway into Trachea, Via Natural or Artificial Opening (ICD-10-PCS; 2017-04-08)
PROC: 06HM33Z Insertion of Infusion Device into Right Femoral Vein, Percutaneous Approach (ICD-10-PCS; 2017-04-08)
DX: I46.8 Cardiac arrest due to other underlying condition (principal); J96.01 Acute respiratory failure with hypoxia; J69.0 Pneumonitis due to inhalation of food and vomit; I50.21 Acute systolic (congestive) heart failure; N17.9 Acute kidney failure, unspecified; I42.7 Cardiomyopathy due to drug and external agent; D69.6 Thrombocytopenia, unspecified; E87.4 Mixed disorder of acid-base balance; I11.0 Hypertensive heart disease with heart failure; I49.01 Ventricular fibrillation; E83.42 Hypomagnesemia; E83.39 Other disorders of phosphorus metabolism; F10.129 Alcohol abuse with intoxication, unspecified; F14.129 Cocaine abuse with intoxication, unspecified; F12.929 Cannabis use, unspecified with intoxication, unspecified; F17.200 Nicotine dependence, unspecified, uncomplicated; R73.9 Hyperglycemia, unspecified; R41.3 Other amnesia; R40.2432 Glasgow coma scale score 3-8, at arrival to emergency department; Y90.6 Blood alcohol level of 120-199 mg/100 ml
CPT/HCPCS: 31500; 36415; 36600; 70450; 71045; 76705; 80048; 80053; 80076; 80306; 80307; 81001; 82550; 82553; 82803; 82962; 83036; 83735; 84100; 84132; 84484; 85025; 85610; 85730; 86703; 86704; 86706; 86803; 87040; 87070; 87081; 87340; 89220; 92526; 92610; 93005; 93306; 94002; 94003; 94640; 94664; 94770; 96374; 96375; 97110; 97116; 97163; 97166; 97530; 99291-25